=== PATIENT | female | born 2000 | race Caucasian/White ===

== ENCOUNTER 2021-06-19 13:54 | Emergency (ER) | payer OTHER, SELFPAY ==
[2021-06-19 14:18] VITALS: BP 94/56; PULSE 75; RESP 20; TEMP 36.2; O2SAT 100
--- NOTE | 2021-06-19 15:08 | ED.ABDPAIN ---
HPI - Abdominal Pain General Chief Complaint: Urogenital-Female Stated Complaint: Abdominal Pain Time Seen by Provider: 06/19/21 14:25 Source: patient, RN notes reviewed and old records reviewed Mode of arrival: ambulatory Limitations: no limitations History of Present Illness HPI narrative: 21 year old female who presents to [facility] care with complaints of left lower back and flank pain which radiates to her left abdomen area with pain into her buttocks and down her posterior thigh.Patient reports that she is having urinary frequency for the past 2 days, no fevers chills or sweats, states normal vaginal discharge which is clear. Reports that she had STD testing 2 weeks ago which was negative. Reports that she has had some back pain in the past. MD elicited complaint: abdominal pain and other (lower left back pain to posterior thigh) Related Data Home Medications Medication Instructions Recorded Confirmed dextroamphetamine-amphetamine PO 06/19/21 methocarbamol mg 06/19/21 venlafaxine mg PO 06/19/21 Allergies Allergy/AdvReac Type Severity Reaction Status Date / Time morphine Allergy Rash Verified 06/19/21 14:15 SEASONAL ALLERGENS AdvReac Unknown Congested Uncoded 06/19/21 14:15 Review of Systems Review of Systems: CONSTITUTIONAL: Denies fever, chills, or sweats. EYES: Denies visual changes, redness, or discharge. ENT: Denies rhinorrhea, congestion, sore throat, or otalgia. CARDIOVASCULAR: Denies chest pain, palpitations, or edema. RESPIRATORY: Denies cough or dyspnea. GASTROINTESTINAL: left mid to lower abdominal pain,no nausea, vomiting, or diarrhea. GENITOURINARY: Denies dysuria or hematuria.reports urinary frequency SKIN: Denies rash or itching. MUSCULOSKELETAL: left lower back pain radiating to buttocks and down posterior thigh,no joint pain, or myalgia. NEUROLOGIC: Denies headache, numbness, or weakness. PSYCHIATRIC: Positive history of anxiety or depression. GE All systems reviewed & are unremarkable except as noted in HPI and below PMFSH Past Medical History Medical History (Updated 06/24/21 @ 08:39 by Krystle Ken NP) ADD (attention deficit disorder) Anxiety and depression Bipolar disorder Hyperlipidemia Hypothyroidism Seasonal allergies Surgical History Surgical History (Updated 06/24/21 @ 08:39 by Krystle Ken NP) History of placement of ear tubes History of tonsillectomy Family History Family History (Updated 06/24/21 @ 08:40 by Krystle Ken NP) Other No significant family history Social History Social History (Updated 06/24/21 @ 08:42 by Krystle Ken NP) Smoking status: Never smoker Alcohol intake: never Substance use type: does not use Living arrangements: with family Gender identity (if verbalized by the patient): Female Exam Narrative: GENERAL: Well-appearing, well-nourished, and in no acute distress. HEAD: Normocephalic, atraumatic. EYES: PERRLA and EOMI. ENT: Nares clear, no rhinorrhea or epistaxis. Mucous membranes moist.TM's normal, Throat normal with no swelling or exudates or lesions.tonsils absent NECK: Supple.no lymphadenopathy CHEST: Clear to auscultation. No respiratory distress.SAO2 100% on room air HEART: Regular rate and rhythm. No murmur heard. Normal peripheral pulses. ABDOMEN: Soft,tender left mid lower abdomen, no McBurney point tenderness, nondistended, normal active bowel sounds., denies nausea, vomiting, diarrhea or constipation, left flank tenderness EXTREMITIES: Normal range of motion. No edema. pain to left lower back down to buttocks and mid posterior thigh, full ROM of left leg, no tingling or numbness to left leg or foot, circulation intact SKIN: Warm, dry, no rash. NEURO: No focal deficits. Alert and oriented x3. Course Vital Signs Vital signs: Vital Signs Temperature 36.2 C L 06/19/21 14:18 Pulse Rate 75 06/19/21 14:18 Respiratory Rate 20 06/19/21 14:18 Blood Pressure 94/56 L 06/19/21 14:18 Pulse Oxime
== END 2021-06-19 15:53 | disposition home or self-care (01) ==
PROVIDERS: Emergency Provider Registered Nurse; PCP Physician Assistant
DX: R35.0 Frequency of micturition (principal); M54.32 Sciatica, left side; E78.5 Hyperlipidemia, unspecified; E03.9 Hypothyroidism, unspecified; F98.8 Other specified behavioral and emotional disorders with onset usually occurring in childhood and adolescence; F41.9 Anxiety disorder, unspecified; F32.9 Major depressive disorder, single episode, unspecified
CPT/HCPCS: 81003; 99213; G0463

== ENCOUNTER 2022-09-14 09:42 | Emergency (ER) | payer OTHER, SELFPAY ==
[2022-09-14 09:48] VITALS: BP 119/65; PULSE 79; RESP 16; TEMP 37.1; O2SAT 100
[2022-09-14 10:50] LABS: Basophils Percent Auto 0.1 % (0.2-1.2); Eosinophils Percent Auto 0.2 % (0-4.4); Hematocrit 37.8 % (37.0-47.0); Immature Granulocyte Absolute 0.03 K/mm3 (0.00-0.031); Immature Granulocyte Percent A 0.3 % (0-0.5); Lymphocytes Absolute Auto 1.44 K/mm3 (0.9-3.2); Lymphocytes Percent Auto 14.9 % (18.3-44.2); Mean Corpuscular HGB Conc 34.4 g/dl (32-36); Mean Corpuscular Hemoglobin 28.7 pg (26-34); Mean Corpuscular Volume 83.4 fl (80-100); Mean Platelet Volume 9.5 fl (7.4-10.4); Monocytes Absolute Auto 0.5 K/mm3 (0.1-0.6); Monocytes Percent Auto 5.4 % (2.6-8.5); Neutrophils Absolute Auto 7.6 K/mm3 (1.3-6.7); Neutrophils Percent Auto 79.1 % (45.5-73.1); Platelet Count Result 246 k/mm3 (150-375); Red Blood Count 4.53 M/mm3 (4.2-5.4); Red Cell Distribution Width 12.9 % (11.5-14.5); White Blood Count 9.7 K/mm3 (4.5-10.0)
[2022-09-14 10:55] LABS: Appearance Urine Clear (Clear); Bilirubin Urine Negative (Negative); Blood Urine Negative (Negative); Color Urine Yellow (Yellow); Glucose Urine UA Negative (Negative); Ketones Urine Negative (Negative); Leukocyte Esterase Ur Negative LEU/UL (Negative); Nitrate Urine Negative (Negative); Protein Urine Negative (Negative); Specific Grav Ur 1.025 (1.001-1.035); Urobilinogen Urine 0.2 mg/dL (<2.0)
[2022-09-14 10:56] LABS: Add Urine Microscopic? NO
[2022-09-14 11:07] LABS: Alanine Aminotransferase 20 U/L (6-35); Albumin Level 4.3 g/dL (3.5-5.1); Alkaline Phosphatase 48 U/L (38-126); Anion Gap 6 mmol/L (8-16); Aspartate Amino Transferase 22 U/L (14-36); Bilirubin,Total 0.5 mg/dL (0.2-1.3); Blood Urea Nitrogen 9 mg/dL (7-17); Calcium 8.7 mg/dL (8.4-10.2); Carbon Dioxide 25 mmol/L (22-30); Chloride 104 mmol/L (98-107); Estimated Glomerular Filt Rate > 60; Glucose 83 mg/dL (65-110); Lipase 59 U/L (23-300); Potassium 4.5 mmol/L (3.4-5.0); Sodium 135 mmol/L (137-145)
[2022-09-14] MEDS: SODIUM CHLORIDE 0.9% IV 1,000 ML 999 ML IV CONT (11:30)
[2022-09-14] MEDS: ONDANSETRON INJ 4 MG/2 ML VIAL IV PUSH (11:30)
--- NOTE | 2022-09-14 13:54 | ED.GENADULT ---
HPI - General Adult General Chief complaint: Nausea/Vomiting/Diarrhea Stated complaint: 7 weeks , vomiting Time Seen by Provider: 09/14/22 11:04 History of Present Illness HPI narrative: Patient is a 22-year-old female who presents ER with nausea and vomiting. Ongoing over the last couple days. Associated with her . She is 7 weeks in gestation. She sees a physician at [facility]. No vaginal bleeding with physiologic discharge. No diarrhea. No urinary frequency urgency or dysuria. No antibiotics at home. No known sick contacts. Related Data Home Medications Medication Instructions Recorded Confirmed dextroamphetamine-amphetamine ER PO 06/19/21 30 mg 24hr capsule,extend release methocarbamol 500 mg tablet mg 06/19/21 venlafaxine 150 mg mg PO 06/19/21 capsule,extended release 24 hr Allergies Allergy/AdvReac Type Severity Reaction Status Date / Time morphine Allergy Rash Verified 06/19/21 14:15 SEASONAL ALLERGENS AdvReac Unknown Congested Uncoded 06/19/21 14:15 Review of Systems Review of Systems: All systems reviewed & are unremarkable except as noted in HPI and below Constitutional: Constitutional: Denies chills, Denies fatigue and Denies fever(s) ENT: Denies nasal congestion and Denies sore throat Cardiovascular: Cardiovascular: Denies chest pain, Denies rapid heart rate and Denies radiating jaw, neck or arm pain Respiratory: Respiratory: Denies cough and Denies dyspnea Gastrointestinal: Gastrointestinal: Denies abdominal pain, Denies diarrhea, Reports nausea and Reports vomiting Genitourinary: Genitourinary: Denies abnormal vaginal bleeding, Denies nocturia, Denies dysuria and Denies pelvic pain PMF Past Medical History Medical History (Updated 09/14/22 @ 14:03 by Syed Narvaez MD) ADD (attention deficit disorder) Anxiety and depression Bipolar disorder Hyperlipidemia Hypothyroidism Seasonal allergies Surgical History Surgical History (Updated 06/24/21 @ 08:39 by Krystle Ken NP) History of placement of ear tubes History of tonsillectomy Family History Family History (Updated 06/24/21 @ 08:40 by Krystle Ken NP) Other No significant family history Social History Social History (Updated 06/24/21 @ 08:42 by Krystle Ken NP) Smoking status: Never smoker Alcohol intake: never Substance use type: does not use Gender identity (if verbalized by the patient): Female Exam Narrative: GENERAL: Well-appearing, well-nourished, and in no acute distress. HEAD: Normocephalic, atraumatic. EYES: PERRL and EOMI. ENT: Mucous membranes moist. CHEST: Clear to auscultation. No respiratory distress. HEART: Regular rate and rhythm. Normal peripheral pulses. ABDOMEN: Soft, nontender, nondistended. EXTREMITIES: Normal range of motion. No edema. SKIN: Warm, dry, no rash. NEURO: Alert and oriented x3. PSYCH: Normal mood and affect. Course Course Emergency Course: Patient resting comfortably. Informed of results. Discharge home. Vital Signs Vital signs: Vital Signs Temperature 98.7 F 09/14/22 09:48 Pulse Rate 79 09/14/22 09:48 Respiratory Rate 16 09/14/22 09:48 Blood Pressure 119/65 09/14/22 09:48 Pulse Oximetry 100 09/14/22 09:48 Oxygen Delivery Room Air 09/14/22 09:48 Temperature 98.7 F 09/14/22 09:48 Pulse Rate 79 09/14/22 09:48 Respiratory Rate 16 09/14/22 09:48 Blood Pressure 119/65 09/14/22 09:48 Pulse Oximetry 100 09/14/22 09:48 Oxygen Delivery Room Air 09/14/22 09:48 Medical Decision Making Vital Signs Vital Signs: Vital Signs Temperature 98.7 F 09/14/22 09:48 Pulse Rate 79 09/14/22 09:48 Respiratory Rate 16 09/14/22 09:48 Blood Pressure 119/65 09/14/22 09:48 Pulse Oximetry 100 09/14/22 09:48 Oxygen Delivery Room Air 09/14/22 09:48 Temperature 98.7 F 09/14/22 09:48 Pulse Rate 79 09/14/22 09:48 Respiratory Rate
== END 2022-09-14 14:14 | disposition home or self-care (01) ==
PROVIDERS: Emergency Provider Emergency Medicine; PCP Physician Assistant
DX: O21.9 Vomiting of pregnancy, unspecified (principal); O99.341 Other mental disorders complicating pregnancy, first trimester; F98.8 Other specified behavioral and emotional disorders with onset usually occurring in childhood and adolescence; F41.9 Anxiety disorder, unspecified; F31.9 Bipolar disorder, unspecified; Z3A.01 Less than 8 weeks gestation of pregnancy
CPT/HCPCS: 36415; 80053; 81003; 83690; 85025; 96361; 96374; 99284; J2405; J7030

== ENCOUNTER 2022-10-11 11:34 | Emergency (ER) | payer OTHER, SELFPAY ==
[2022-10-11 12:06] VITALS: BP 124/68; PULSE 88; RESP 16; TEMP 37.1; O2SAT 100
[2022-10-11 12:52] LABS: Influenza A QL RT-PCR Negative (Negative); Influenza B QL RT-PCR Negative (Negative); SARS-CoV-2 RNA PCR Negative
--- NOTE | 2022-10-11 14:31 | ED.URI ---
HPI - URI/Sore Throat General Chief Complaint: Upper Respiratory Infection Stated Complaint: FLU S/SX Time Seen by Provider: 10/11/22 14:30 History of Present Illness HPI Narrative: Patient is a 22-year-old female at approximately 11 weeks gestation presenting with URI symptoms. Patient states that for the last several days she has had nasal congestion, cough, body aches. States that last night she had an episode where she felt lightheaded, nauseated, sweaty. States that she then got on [employer] and became scared that she might miscarry. She contacted her OB who told her to come in for evaluation. She denies any vaginal bleeding or discharge. States that she has had some mild suprapubic pain that radiates to her flanks. She denies headache, numbness or weakness, chest pain, shortness of breath, nausea or vomiting, diarrhea, dysuria. Related Data Home Medications Medication Instructions Recorded Confirmed dextroamphetamine-amphetamine ER PO 06/19/21 30 mg 24hr capsule,extend release methocarbamol 500 mg tablet mg 06/19/21 venlafaxine 150 mg mg PO 06/19/21 capsule,extended release 24 hr Allergies Allergy/AdvReac Type Severity Reaction Status Date / Time morphine Allergy Rash Verified 10/11/22 14:40 SEASONAL ALLERGENS AdvReac Unknown Congested Uncoded 10/11/22 14:40 Review of Systems Review of Systems: All systems reviewed & are unremarkable except as noted in HPI and below PMFSH Past Medical History Medical History ADD (attention deficit disorder) Anxiety and depression Bipolar disorder Hyperlipidemia Hypothyroidism Seasonal allergies Surgical History Surgical History History of placement of ear tubes History of tonsillectomy Family History Family History Other No significant family history Social History Social History Smoking status: Never smoker Alcohol intake: never Substance use type: does not use Gender identity (if verbalized by the patient): Female Exam Narrative: GENERAL: Well-appearing, well-nourished, and in no acute distress. HEAD: Normocephalic, atraumatic. EYES: PERRLA and EOMI. ENT: + Nasal congestion. Mucous membranes moist. NECK: Supple. CHEST: Clear to auscultation. No respiratory distress. HEART: Regular rate and rhythm. No murmur heard. Normal peripheral pulses. ABDOMEN: Soft, nontender, nondistended, normal active bowel sounds. EXTREMITIES: Normal range of motion. No edema. SKIN: Warm, dry, no rash. NEURO: No focal deficits. Alert and oriented x3. PSYCH: Normal mood and affect. Course Vital Signs Vital signs: Vital Signs Temperature 98.8 F 10/11/22 12:06 Pulse Rate 88 10/11/22 12:06 Respiratory Rate 16 10/11/22 12:06 Blood Pressure 124/68 10/11/22 12:06 Pulse Oximetry 100 10/11/22 12:06 Oxygen Delivery Room Air 10/11/22 12:06 Temperature 98.8 F 10/11/22 12:06 Pulse Rate 75 10/11/22 15:57 Respiratory Rate 18 10/11/22 15:57 Blood Pressure 100/68 10/11/22 15:57 Pulse Oximetry 98 10/11/22 15:57 Oxygen Delivery Room Air 10/11/22 14:38 MDM - URI/Sore Throat MDM Narrative Medical decision making narrative: Patient is a 22-year-old female presenting with URI symptoms. Vitals are within normal limits. Patient is well-appearing and in no acute distress. Exam is unremarkable. Lungs are clear bilaterally. Patient is negative for COVID, influenza. UA is normal. Suspect the patient has some other viral URI. Discussed appropriate supportive care. Advised Tylenol for body aches and fever. Recommended she follow-up with her PCP and [employer]. Appropriate return precautions given. Discharged in stable condition. Lab Data Labs: Lab Results 10/11/22 10/11/22 Range/Units 12:10 14
--- NOTE | 2022-10-11 14:38 | PC.NURSE ---
Dr. Mccullough at bedside to assess pt.
[2022-10-11 15:35] LABS: Add Urine Microscopic? NO; Appearance Urine Clear (Clear); Bilirubin Urine Negative (Negative); Blood Urine Negative (Negative); Color Urine Light Yellow (Yellow); Glucose Urine UA Negative (Negative); Ketones Urine Negative (Negative); Leukocyte Esterase Ur Negative LEU/UL (Negative); Nitrate Urine Negative (Negative); Protein Urine Negative (Negative); Urobilinogen Urine 0.2 mg/dL (<2.0)
[2022-10-11 15:57] VITALS: BP 100/68; PULSE 75; RESP 18; O2SAT 98
== END 2022-10-11 15:59 | disposition home or self-care (01) ==
PROVIDERS: Physician Assistant; Emergency Provider Emergency Medicine; PCP Physician Assistant
DX: O99.511 Diseases of the respiratory system complicating pregnancy, first trimester (principal); J06.9 Acute upper respiratory infection, unspecified; Z20.822 Contact with and (suspected) exposure to COVID-19; O99.341 Other mental disorders complicating pregnancy, first trimester; F98.8 Other specified behavioral and emotional disorders with onset usually occurring in childhood and adolescence; F41.9 Anxiety disorder, unspecified; F31.9 Bipolar disorder, unspecified; Z3A.11 11 weeks gestation of pregnancy
CPT/HCPCS: 81003; 87636; 99283

== ENCOUNTER 2023-04-01 21:41 | Emergency (ER) | payer OTHER, SELFPAY ==
--- NOTE | ~2023-04-01 | US_ITS ---
Pelvic ultrasound. Clinical History: First trimester , evaluate for ectopic Technique: Realtime transabdominal and transvaginal scanning of the pelvis was performed. Color flow Doppler and Doppler spectral analysis were performed. Findings: The uterus is anteverted, and contains an intrauterine gestation. heart rate is 163 b pm. [place]-rump length of 1.3 cm corresponds to an estimated gestational age of 7 weeks 4 days. Questi onable minimal debris within the gestational sac and minimal irregularity of the pole. The right ovary measures 3.3 x 3.0 x 3.3 cm. No significant right ovarian or adnexal mass is seen. The left ovary measures 2.4 x 1.3 x 1.5 cm. No significant left ovarian or adnexal mass is seen. There is no evidence of free fluid in the cul de sac. Impression: Life intrauterine gestation with the stated gestational age of 7 weeks 4 days. heart rate is 16 3 bpm. Questionable minimal irregularity of pole with minimal debris in the gestational sac. Co nsider continued sonographic follow-up as indicated. Reviewed, dictated and finalized at location . Impression: Life intrauterine gestation with the stated gestational age of 7 weeks 4 days. heart rate is 163 bpm. Questionable minimal irregularity of pole wi th minimal debris in the gestational sac. Consider continued sonographic follow -up as indicated.
[2023-04-01 21:43] VITALS: BP 138/82; PULSE 84; RESP 19; TEMP 36.3; O2SAT 100
[2023-04-01 23:31] LABS: Basophils Percent Auto 0.2 % (0.2-1.2); Eosinophils Absolute Auto 0.1 K/mm3 (0-0.3); Eosinophils Percent Auto 0.5 % (0-4.4); Hematocrit 37.4 % (37.0-47.0); Hemoglobin 12.9 g/dL (12.0-15.0); Immature Granulocyte Absolute 0.04 K/mm3 (0.00-0.031); Immature Granulocyte Percent A 0.4 % (0-0.5); Lymphocytes Percent Auto 23.8 % (18.3-44.2); Mean Corpuscular HGB Conc 34.5 g/dl (32-36); Mean Corpuscular Hemoglobin 27.3 pg (26-34); Mean Corpuscular Volume 79.2 fl (80-100); Mean Platelet Volume 9.2 fl (7.4-10.4); Monocytes Absolute Auto 0.8 K/mm3 (0.1-0.6); Monocytes Percent Auto 7.5 % (2.6-8.5); Neutrophils Absolute Auto 7.1 K/mm3 (1.3-6.7); Neutrophils Percent Auto 67.6 % (45.5-73.1); Platelet Count Result 313 k/mm3 (150-375); Red Blood Count 4.72 M/mm3 (4.2-5.4); Red Cell Distribution Width 15.3 % (11.5-14.5); White Blood Count 10.5 K/mm3 (4.5-10.0)
[2023-04-01 23:38] LABS: Appearance Urine Cloudy (Clear); Bacteria Urine 2+ /hpf; Bilirubin Urine Negative (Negative); Blood Urine Negative (Negative); Color Urine Yellow (Yellow); Glucose Urine UA Negative (Negative); Ketones Urine Trace mg/dL (Negative); Leukocyte Esterase Ur Negative LEU/UL (Negative); Nitrate Urine Negative (Negative); Non Pathogenic Casts 0-2; Protein Urine Negative (Negative); RBC Urine 0-2 /hpf (0-2); Specific Grav Ur 1.031 (1.001-1.035); Squamous Epithelial Cell Urine Occasional /hpf (Few); WBC Urine 0-5 /hpf; pH Urine 5.5 (5.0-9.0)
[2023-04-01 23:41] LABS: INR 0.9; Prothrombin Time 12.3 Seconds (11.1-14.7)
[2023-04-01 23:42] VITALS: BP 133/76; PULSE 76; RESP 18; O2SAT 96
[2023-04-01 23:42] LABS: Partial Thromboplastin Time 22.1 SECONDS (22.3-36.8)
[2023-04-01 23:43] LABS: Anion Gap 6 mmol/L (8-16); Blood Urea Nitrogen 12 mg/dL (7-17); Calcium 9.5 mg/dL (8.4-10.2); Carbon Dioxide 30 mmol/L (22-30); Chloride 104 mmol/L (98-107); Estimated CRCL calculation 142 ml/min; Estimated Glomerular Filt Rate > 60; Glucose 95 mg/dL (65-110); Potassium 3.8 mmol/L (3.4-5.0); Sodium 140 mmol/L (137-145)
[2023-04-01 23:44] LABS: Add Urine Microscopic? YES
--- NOTE | 2023-04-02 00:07 | ED.GENADULT ---
HPI - General Adult General Chief complaint: Abdominal Pain Stated complaint: RLQ pain, 8 weeks preg Time Seen by Provider: 04/01/23 22:07 History of Present Illness HPI narrative: This is a 23-year-old presenting the ED with right lower quadrant pain. Patient's last menstrual period was on February 06. Over the last 4 days she has had a sharp pain in the right lower quadrant that radiates to her back. It is 8/10 intensity and comes on for approximately 5 minutes before resolving on its own. It occurs multiple times throughout the day. She has never experienced this before there are no exacerbating or alleviating factors. patient will denies vaginal bleeding but notes that she has a foul smell. No itching or irritation. Patient is seen OBGYN was not had ultrasound yet. Related Data Home Medications Medication Instructions Recorded Confirmed dextroamphetamine-amphetamine ER PO 06/19/21 30 mg 24hr capsule,extend release methocarbamol 500 mg tablet mg 06/19/21 venlafaxine 150 mg mg PO 06/19/21 capsule,extended release 24 hr Allergies Allergy/AdvReac Type Severity Reaction Status Date / Time morphine Allergy Rash Verified 04/01/23 21:47 SEASONAL ALLERGENS AdvReac Unknown Congested Uncoded 10/11/22 14:40 PMFSH Past Medical History Medical History ADD (attention deficit disorder) Anxiety and depression Bipolar disorder Hyperlipidemia Hypothyroidism Seasonal allergies Surgical History Surgical History History of placement of ear tubes History of tonsillectomy Family History Family History Other No significant family history Social History Social History Smoking status: Never smoker Alcohol intake: never Substance use type: does not use Living arrangements: with family Gender identity (if verbalized by the patient): Female Exam Narrative: APPEARANCE: No apparent distress. Head: atraumatic. EYES: EOMI, NOSE: Atraumatic NECK: Trachea midline RESPIRATORY: No increased rate of breathing CARDIOVASCULAR: RRR, ABDOMINAL: Abdomen is soft with mild tenderness in the right lower quadrant. No guarding or rebound MUSCULOSKELETAl: No obvious deformities NEURO: Alert. Moving 4/4 extremities SKIN:: Warm, dry. Normal color PSYCHIATRIC: Normal affect Course Vital Signs Vital signs: Vital Signs Temperature 97.4 F L 04/01/23 21:43 Pulse Rate 84 04/01/23 21:43 Respiratory Rate 19 04/01/23 21:43 Blood Pressure 138/82 04/01/23 21:43 Pulse Oximetry 100 04/01/23 21:43 Oxygen Delivery Room Air 04/01/23 21:43 Temperature 97.4 F L 04/01/23 21:43 Pulse Rate 75 04/02/23 01:49 Respiratory Rate 14 04/02/23 01:49 Blood Pressure 103/86 04/02/23 01:49 Pulse Oximetry 99 04/02/23 01:49 Oxygen Delivery Room Air 04/01/23 21:43 Medical Decision Making MDM Narrative Medical decision making narrative: -Presentation: 23-year-old female presenting with right lower quadrant pain at approximately 8 weeks . Rule out ectopic workup ordered. -DDX includes but is not limited to: Ectopic , appendicitis, functional abdominal pain -Co-morbidities complicating care: -Social determinants of health: patient is unemployed -External Chart Review: review of previous ER visits -Hx from independent Sources: boyfriend Naveed at bedside -Discussion of Management/Consultants: -Independent interpretation of studies: Lab work within normal limits. Urine not indicative of infection. Transvaginal ultrasound showed an 8 week and 1 day fetus with heart rate of 158. Dx tests considered but not ordered: CT abdomen pelvis - appendicitis was considered but is unlikely given she has had symptoms for 4 days
[2023-04-02 01:49] VITALS: BP 103/86; PULSE 75; RESP 14; O2SAT 99
== END 2023-04-02 02:58 | disposition home or self-care (01) ==
PROVIDERS: Emergency Provider Emergency Medicine
DX: R10.31 Right lower quadrant pain (principal); O26.91 Pregnancy related conditions, unspecified, first trimester; Z3A.08 8 weeks gestation of pregnancy
CPT/HCPCS: 36415; 76801; 76817; 80048; 81001; 81025; 84702; 85025; 85610; 85730; 86850; 86900; 86901; 99284

== ENCOUNTER 2023-05-24 22:38 | Emergency (ER) | payer OTHER, SELFPAY ==
[2023-05-24 22:40] VITALS: BP 135/75; PULSE 98; RESP 15; TEMP 37; O2SAT 100
[2023-05-24 23:27] VITALS: BP 125/83; PULSE 79; RESP 14; O2SAT 98
[2023-05-24 23:31] VITALS: BP 127/76; PULSE 84; RESP 13; O2SAT 99
[2023-05-24 23:32] VITALS: O2SAT 100
--- NOTE | 2023-05-24 23:45 | ED.WEAKNESS ---
HPI - Weakness General Chief complaint: Weakness Stated complaint: dizziness X4 days-migraine Time Seen by Provider: 05/24/23 23:29 History of Present Illness HPI Narrative: Patient is a 23-year-old female at approximately 16 weeks gestation presenting with a migraine. Patient states that for the last 4 to 5 days she has had a persistent headache. States that she has been sleeping a lot lately and feels generally exhausted. States that she has had a poor appetite her entire due to nausea but she has not actually had any vomiting. She took some Tylenol earlier with minimal relief. She denies numbness or weakness, vision changes, abdominal pain, dysuria, hematuria, leg swelling. Related Data Home Medications Medication Instructions Recorded Confirmed dextroamphetamine-amphetamine ER PO 06/19/21 30 mg 24hr capsule,extend release methocarbamol 500 mg tablet mg 06/19/21 venlafaxine 150 mg mg PO 06/19/21 capsule,extended release 24 hr Allergies Allergy/AdvReac Type Severity Reaction Status Date / Time morphine Allergy Rash Verified 05/24/23 23:26 SEASONAL ALLERGENS AdvReac Unknown Congested Uncoded 05/24/23 23:26 Review of Systems Review of Systems: All systems reviewed & are unremarkable except as noted in HPI and below PMFSH Past Medical History Medical History ADD (attention deficit disorder) Anxiety and depression Bipolar disorder Hyperlipidemia Hypothyroidism Seasonal allergies Surgical History Surgical History History of placement of ear tubes History of tonsillectomy Family History Family History Other No significant family history Social History Social History Smoking status: Never smoker Alcohol intake: never Substance use type: does not use Living arrangements: with family Gender identity (if verbalized by the patient): Female Exam Narrative: GENERAL: Well-appearing, well-nourished, and in no acute distress. HEAD: Normocephalic, atraumatic. EYES: PERRLA and EOMI. ENT: Nares clear, no rhinorrhea or epistaxis. Mucous membranes moist. NECK: Supple. CHEST: No respiratory distress. HEART: Regular rate and rhythm. Normal peripheral pulses. ABDOMEN: Soft, nontender, appropriately gravid abdomen EXTREMITIES: Normal range of motion. No edema. SKIN: Warm, dry, no rash. NEURO: No focal deficits. Alert and oriented x3. PSYCH: Normal mood and affect. Course Vital Signs Vital signs: Vital Signs Temperature 98.6 F 05/24/23 22:40 Pulse Rate 98 05/24/23 22:40 Respiratory Rate 15 05/24/23 22:40 Blood Pressure 135/75 05/24/23 22:40 Pulse Oximetry 100 05/24/23 22:40 Oxygen Delivery Room Air 05/24/23 22:40 Temperature 98.6 F 05/24/23 22:40 Pulse Rate 80 05/25/23 02:15 Respiratory Rate 14 05/25/23 02:15 Blood Pressure 123/74 05/25/23 02:15 Pulse Oximetry 99 05/25/23 02:15 Oxygen Delivery Room Air 05/24/23 22:40 MDM - Weakness MDM Narrative Medical decision making narrative: Patient is a 23-year-old female presenting with headache and generalized fatigue. Vitals within normal limits. Exam remarkable for the above. Plan for fluids, Compazine, Benadryl. Check basic labs and UA. Blood work is unremarkable. UA not indicative of infection. Patient reports significant improvement in her headache following IV treatment. She is asking to go home which I think is reasonable. Advised that she follow-up closely with her OB and try to push fluids more aggressively over the next few days. Appropriate return precautions given. Patient voiced understanding and is agreeable with plan. Discharged in stable condition. Differential Diagnosis Differential diagnosis: Likely other (Headache, second trime
[2023-05-25] VITALS (11 sets, daily range): BP systolic 123–146; BP diastolic 73–74; PULSE 76–86; RESP 14–30; O2SAT 95–99
[2023-05-25 00:26] LABS: Appearance Urine Clear (Clear); Bilirubin Urine Negative (Negative); Blood Urine Negative (Negative); Color Urine Yellow (Yellow); Glucose Urine UA Negative (Negative); Ketones Urine Negative (Negative); Leukocyte Esterase Ur Negative LEU/UL (Negative); Nitrate Urine Negative (Negative); Protein Urine Negative (Negative); Specific Grav Ur 1.009 (1.001-1.035); Urobilinogen Urine 0.2 mg/dL (<2.0)
[2023-05-25] MEDS: SODIUM CHLORIDE 0.9% IV 1,000 ML 999 ML IV CONT (00:31)
[2023-05-25] MEDS: PROCHLORPERAZINE EDISYLATE 10 MG/2 ML VIAL IV PUSH (00:32)
[2023-05-25] MEDS: diphenhydrAMINE HCl INJ 50 MG/ML VIAL IV PUSH (00:32)
[2023-05-25 00:54] LABS: Add Urine Microscopic? NO
[2023-05-25 00:58] LABS: Basophils Percent Auto 0.1 % (0.2-1.2); Eosinophils Percent Auto 0.2 % (0-4.4); Hematocrit 34.5 % (37.0-47.0); Hemoglobin 11.6 g/dL (12.0-15.0); Immature Granulocyte Absolute 0.13 K/mm3 (0.00-0.031); Immature Granulocyte Percent A 1.5 % (0-0.5); Lymphocytes Absolute Auto 1.87 K/mm3 (0.9-3.2); Lymphocytes Percent Auto 21.1 % (18.3-44.2); Mean Corpuscular HGB Conc 33.6 g/dl (32-36); Mean Corpuscular Hemoglobin 27.8 pg (26-34); Mean Corpuscular Volume 82.7 fl (80-100); Mean Platelet Volume 9.8 fl (7.4-10.4); Monocytes Absolute Auto 0.6 K/mm3 (0.1-0.6); Neutrophils Absolute Auto 6.2 K/mm3 (1.3-6.7); Neutrophils Percent Auto 70.1 % (45.5-73.1); Platelet Count Result 240 k/mm3 (150-375); Red Blood Count 4.17 M/mm3 (4.2-5.4); Red Cell Distribution Width 13.9 % (11.5-14.5); White Blood Count 8.9 K/mm3 (4.5-10.0)
[2023-05-25 01:04] LABS: Alanine Aminotransferase 17 U/L (6-35); Albumin Level 3.7 g/dL (3.5-5.1); Alkaline Phosphatase 53 U/L (38-126); Anion Gap 6 mmol/L (8-16); Aspartate Amino Transferase 20 U/L (14-36); Bilirubin,Total 0.2 mg/dL (0.2-1.3); Blood Urea Nitrogen 7 mg/dL (7-17); Calcium 9.3 mg/dL (8.4-10.2); Carbon Dioxide 23 mmol/L (22-30); Chloride 105 mmol/L (98-107); Estimated CRCL calculation 193 ml/min; Estimated Glomerular Filt Rate > 60; Glucose 103 mg/dL (65-110); Potassium 3.4 mmol/L (3.4-5.0); Sodium 134 mmol/L (137-145)
== END 2023-05-25 02:20 | disposition home or self-care (01) ==
PROVIDERS: Emergency Provider Emergency Medicine; PCP Physician Assistant
DX: O26.892 Other specified pregnancy related conditions, second trimester (principal); R51.9 Headache, unspecified; O99.282 Endocrine, nutritional and metabolic diseases complicating pregnancy, second trimester; E78.5 Hyperlipidemia, unspecified; E03.9 Hypothyroidism, unspecified; O99.342 Other mental disorders complicating pregnancy, second trimester; F98.8 Other specified behavioral and emotional disorders with onset usually occurring in childhood and adolescence; F41.9 Anxiety disorder, unspecified; F31.9 Bipolar disorder, unspecified; Z3A.16 16 weeks gestation of pregnancy
CPT/HCPCS: 36415; 80053; 81003; 84702; 85025; 96361; 96374; 96375; 99284; J0780; J1200; J7030

== ENCOUNTER 2023-06-27 18:24 | Observation (INO) | payer OTHER, SELFPAY ==
[2023-06-27 18:29] VITALS: BP 126/70; PULSE 97; RESP 18; TEMP 37.2; O2SAT 98
--- NOTE | 2023-06-27 19:00 | PC.NURSE ---
OB was notified of pt and pt was sent to OB for monitoring. pt accompanied by NIRAV Taylor and pt was seen at OB triage @[id number]
[2023-06-27 19:26] VITALS: BMI 42.7
--- NOTE | 2023-06-27 19:26 | OBADM ---
This patient, Anita Urbano, admitted to the OB room Labor/Delivery/Recovery 119 for observation. Patient/family oriented to hospital policies and general routines including ID bracelet, bed and alarms, visiting hours, pain management, procedures, bathroom and other care routines, personal items, smoking policy, room service/diet, and visiting hours. Patient/Family are encouraged to report perceived risks to care and to ask questions if they do not understand what they are told or what they should do.
--- NOTE | 2023-06-27 19:30 | PC.NURSE ---
called Dr. Casey notified pt admission for decreased movement. 5 min heart tones was observed 145-150bpm. Pt now feeling of movement. Discharge order received.
--- NOTE | 2023-06-28 12:00 | PM.OBTRLD ---
OB - Triage/Final Diagnosis Visit Information Comments/Additional reasons for admission: I have assessed the risk for this patient, Anita Urbano, and determined that she would benefit from observation care. Evaluation Vital signs: Vital Signs - 24 hr 06/27/23 18:29 Temperature 98.9 F Pulse Rate 97 Respiratory Rate 18 Blood Pressure 126/70 Pulse Oximetry 98 Oxygen Delivery Room Air Final Diagnosis (1) Decreased movement: Code(s): O36.8190 - Decreased movements, unspecified trimester, not applicable or unspecified Status: Acute
== END 2023-06-27 19:46 | disposition home or self-care (01) ==
LOC: ANHED 18:50 → ANHLDR 19:02
PROVIDERS: Admitting Provider Obstetrics & Gynecology; Emergency Provider Obstetrics & Gynecology; PCP Physician Assistant; Visit Provider Obstetrics & Gynecology
DX: O36.8190 Decreased fetal movements, unspecified trimester, not applicable or unspecified (principal); Z3A.00 Weeks of gestation of pregnancy not specified
CPT/HCPCS: G0378; G0379

== ENCOUNTER 2024-01-24 11:06 | Emergency (ER) | payer OTHER, SELFPAY ==
[2024-01-24 11:17] VITALS: BP 127/71; PULSE 98; RESP 16; TEMP 36.1; O2SAT 97
[2024-01-24 12:30] VITALS: BP 110/69; PULSE 81; RESP 18; O2SAT 100
[2024-01-24 13:55] VITALS: BP 107/67; PULSE 83; RESP 14; O2SAT 98
[2024-01-24] MEDS: ONDANSETRON INJ 4 MG/2 ML VIAL IV PUSH (13:56)
[2024-01-24] MEDS: SODIUM CHLORIDE 0.9% IV 1,000 ML 999 ML IV CONT (13:56)
[2024-01-24 14:00] VITALS: BP 100/68; PULSE 83; RESP 13; O2SAT 97
[2024-01-24 14:01] VITALS: BP 107/67; PULSE 80; RESP 15; O2SAT 98
--- NOTE | 2024-01-24 14:09 | ED.GENADULT ---
HPI - General Adult General Chief complaint: Nausea/Vomiting/Diarrhea Stated complaint: dizzy, n/v Time Seen by Provider: 01/24/24 12:35 History of Present Illness HPI narrative: Patient is a 23-year-old female who presents ER with dizziness. Sudden onset. Spinning in nature. Causes her to be nauseous and occasionally vomits. Worse with moving her head. She has not tried any medications for this. Has no sinus congestion or sore throat. No ringing in the ears. No weakness in the arms or legs. Related Data Home Medications Medication Instructions Recorded Confirmed dextroamphetamine-amphetamine ER PO 06/19/21 30 mg 24hr capsule,extend release methocarbamol 500 mg tablet mg 06/19/21 venlafaxine 150 mg mg PO 06/19/21 capsule,extended release 24 hr Allergies Allergy/AdvReac Type Severity Reaction Status Date / Time morphine Allergy Rash Verified 06/27/23 19:31 SEASONAL ALLERGENS AdvReac Unknown Congested Uncoded 06/27/23 19:31 Review of Systems Review of Systems: All systems reviewed & are unremarkable except as noted in HPI and below Constitutional: Constitutional: Reports no additional constitutional complaints ENT: Reports vertigo, Denies nasal congestion and Denies sore throat Cardiovascular: Cardiovascular: Reports no additional cardiovascular complaints Respiratory: Respiratory: Reports no additional respiratory complaints Genitourinary: Genitourinary: Reports no additional female genitourinary complaints Neurologic: Reports system reviewed and no additional complaints, except as documented [facility] Past Medical History Medical History ADD (attention deficit disorder) Anxiety and depression Bipolar disorder Hyperlipidemia Hypothyroidism Seasonal allergies Surgical History Surgical History History of placement of ear tubes History of tonsillectomy Family History Family History Other No significant family history Social History Social History Smoking status: Never smoker Alcohol intake: never Substance use type: does not use Living arrangements: with family Gender identity (if verbalized by the patient): Female Exam Narrative: GENERAL: Well-appearing, morbidly obese, and in no acute distress. HEAD: Normocephalic, atraumatic. EYES: PERRL and EOMI. ENT: Mucous membranes moist. TM's normal. CHEST: Clear to auscultation. No respiratory distress. HEART: Regular rate and rhythm. Normal peripheral pulses. ABDOMEN: Soft, nontender, nondistended. EXTREMITIES: Normal range of motion. No edema. SKIN: Warm, dry, no rash. NEURO: Alert and oriented x3. PSYCH: Normal mood and affect. Course Course Emergency Course: Patient feels markedly improved after meclizine/ Zofran / IV fluid. Spinning dizziness has reduced just a slight while will. Ambulates without issue and is able to tolerate fluids. Vital Signs Vital signs: Vital Signs Temperature 97.0 F L 01/24/24 11:17 Pulse Rate 98 01/24/24 11:17 Respiratory Rate 16 01/24/24 11:17 Blood Pressure 127/71 01/24/24 11:17 Pulse Oximetry 97 01/24/24 11:17 Temperature 97.0 F L 01/24/24 11:17 Pulse Rate 80 01/24/24 14:01 Respiratory Rate 15 01/24/24 14:01 Blood Pressure 107/67 01/24/24 14:01 Pulse Oximetry 98 01/24/24 14:01 Medical Decision Making Vital Signs Vital Signs: Vital Signs Temperature 97.0 F L 01/24/24 11:17 Pulse Rate 98 01/24/24 11:17 Respiratory Rate 16 01/24/24 11:17 Blood Pressure 127/71 01/24/24 11:17 Pulse Oximetry 97 01/24/24 11:17 Temperature 97.0 F L 01/24/24 11:17 Pulse Rate 80 01/24/24 14:01 Respiratory Rate 15 01/24/24 14:01 Blood Pressure 107/67 01/24/24 14:01 Pulse Oximetry 98 01/23
[2024-01-24] MEDS: MECLIZINE HCL 25 MG TABLET PO (14:17)
[2024-01-24 14:23] LABS: Basophils Percent Auto 0.1 % (0.2-1.2); Eosinophils Percent Auto 0.1 % (0-4.4); Hematocrit 36.3 % (37.0-47.0); Hemoglobin 10.8 g/dL (12.0-15.0); Immature Granulocyte Absolute 0.03 K/mm3 (0.00-0.031); Immature Granulocyte Percent A 0.3 % (0-0.5); Lymphocytes Percent Auto 12.1 % (18.3-44.2); Mean Corpuscular HGB Conc 29.8 g/dl (32-36); Mean Corpuscular Hemoglobin 22.3 pg (26-34); Mean Corpuscular Volume 74.8 fl (80-100); Monocytes Absolute Auto 0.3 K/mm3 (0.1-0.6); Monocytes Percent Auto 3.5 % (2.6-8.5); Neutrophils Absolute Auto 7.6 K/mm3 (1.3-6.7); Neutrophils Percent Auto 83.9 % (45.5-73.1); Platelet Count Result 395 k/mm3 (150-375); Red Blood Count 4.85 M/mm3 (4.2-5.4); Red Cell Distribution Width 15.6 % (11.5-14.5); White Blood Count 9.1 K/mm3 (4.5-10.0)
[2024-01-24 14:30] LABS: Alanine Aminotransferase 102 U/L (6-35); Albumin Level 4.5 g/dL (3.5-5.1); Alkaline Phosphatase 102 U/L (38-126); Anion Gap 6 mmol/L (4-12); Aspartate Amino Transferase 51 U/L (14-36); Bilirubin,Total 0.5 mg/dL (0.2-1.3); Blood Urea Nitrogen 7 mg/dL (7-17); Calcium 9.3 mg/dL (8.4-10.2); Carbon Dioxide 25 mmol/L (22-30); Chloride 107 mmol/L (98-107); Estimated CRCL calculation 172 ml/min; Estimated Glomerular Filt Rate > 60; Glucose 107 mg/dL (65-110); Sodium 138 mmol/L (137-145)
[2024-01-24 14:53] LABS: Hypochromasia 1+; Platelet Estimate Increased (Adequate)
[2024-01-24 14:54] LABS: Ovalocytes 1+; Schistocytes None Seen
[2024-01-24 16:15] VITALS: BP 110/64; PULSE 80; RESP 16; O2SAT 99
== END 2024-01-24 16:15 | disposition home or self-care (01) ==
PROVIDERS: Emergency Provider Emergency Medicine
DX: R42 Dizziness and giddiness (principal); E78.5 Hyperlipidemia, unspecified; E03.9 Hypothyroidism, unspecified; F98.8 Other specified behavioral and emotional disorders with onset usually occurring in childhood and adolescence; F41.9 Anxiety disorder, unspecified; F31.9 Bipolar disorder, unspecified
CPT/HCPCS: 36415; 80053; 85025; 96361; 96374; 99284; A9270; J2405; J7030